=== PATIENT | male | born 1970 | race Two or more races ===

== ENCOUNTER 2018-12-06 19:58 | Emergency (ER) | payer MEDICAID ==
[~2018-12-06] VITALS: Ht 180.3 cm; Wt 75.0 kg
[2018-12-06] MEDS ORDERED: IBUPROFEN 600MG TABLET PO STA (20:48)
[2018-12-06 21:12] LABS: BASOPHILS % 0.6 % (0.0-2.0); HEMATOCRIT. 42.9 % (42.0-52.0); HEMOGLOBIN. 14.7 g/dL (14.0-18.0); LYMPHOCYTES % 24.1 % (20.0-50.0); MEAN CORPUSCULAR HEMOGLOBIN 30.3 pg (28.0-32.0); MEAN CORPUSCULAR VOLUME 88.5 fL (80.0-94.0); MEAN PLATELET VOLUME 8.2 fl (7.4-10.4); MONOCYTES % 11.9 % (2.0-8.0); NEUTROPHILS % 60.4 % (40.0-76.0); PLATELET 256 x1000/uL (130-400); RED BLOOD CELL COUNT 4.85 mill/uL (4.7-6.1)
[2018-12-06 21:19] LABS: CHLORIDE 102 mEq/L (98-107)
[2018-12-06 21:22] LABS: ETHANOL BLOOD < 10 mg/dL
[2018-12-06 23:05] LABS: CLARITY URINE CLEAR (CLEAR); COLOR URINE YELLOW (YELLOW); KETONES URINE TRACE (NEGATIVE); LEUKOCYTE ESTERASE URINE NEGATIVE (NEGATIVE); NITRITE URINE NEGATIVE (NEGATIVE); OCCULT BLOOD URINE NEGATIVE (NEGATIVE); PH URINE 5.5 (4.5-8.0); PROTEIN URINE NEGATIVE (NEGATIVE); SPECIFIC GRAVITY URINE 1.036 (1.005-1.030)
[2018-12-06 23:21] LABS: *AMPHETAMINES SCREEN URINE PRESUMTIVE POSITIVE (NEGATIVE); *BARBITURATES SCREEN URINE NEGATIVE (NEGATIVE); *BENZODIAZEPINES SCREEN URINE NEGATIVE (NEGATIVE); CANNABINOID URINE SCREEN PRESUMTIVE POSITIVE (NEGATIVE); METHADONE URINE SCREEN NEGATIVE (NEGATIVE); OPIATES URINE SCREEN NEGATIVE (NEGATIVE); PHENCYCLIDINE URINE SCREEN NEGATIVE (NEGATIVE)
[2018-12-06 23:22] LABS: *COCAINE SCREEN URINE NEGATIVE (NEGATIVE)
[2018-12-09] MEDS ORDERED: LORAZEPAM 1MG TABLET PO ONE (04:00)
[2018-12-09] MEDS ORDERED: ACETAMINOPHEN 325MG TABLET PO ONE (05:00)
[2018-12-09] MEDS ORDERED: POTASSIUM CHLORIDE 20MEQ TABLET SR PO ONE (12:15)
[2018-12-09 17:24] VITALS: BP 122/74
== END 2018-12-09 17:40 ==
LOC: ER 20:10
DX: M79.672 Pain in left foot (principal); M79.671 Pain in right foot; M79.605 Pain in left leg; M79.604 Pain in right leg; E87.6 Hypokalemia; F15.10 Other stimulant abuse, uncomplicated; F12.10 Cannabis abuse, uncomplicated; R45.851 Suicidal ideations; Z59.0 Homelessness; Z75.1 Person awaiting admission to adequate facility elsewhere
CPT/HCPCS: 36415; 80048; 80305; 80307; 80320; 80329; 81003; 93970; 99284; 99285; G0480